=== PATIENT | female | born 1940 | race American Indian/Alaskan Native ===

== ENCOUNTER 2019-03-24 13:21 | Emergency (ER) | payer MEDICARE ==
--- NOTE | 2019-03-24 14:09 | Emergency Department Report ---
ED General Adult HPI - General Chief complaint: Altered Mental Status Stated complaint: AMS Time Seen by Provider: 03/24/19 13:45 Source: patient, family, EMS (ems notes not available at time of chart dictation), RN notes reviewed Mode of arrival: Stretcher Limitations: No Limitations - History of Present Illness Initial comments: Primary care Dr.: Patients daughter does not know how to spell the name of the primary care doctor thinks is Dr Ortega. Past medical history: Hypertension, presumed gout, presumed dementia, on multiple sedating medications, including tramadol, Elavil, and Lyrica. Also has a history of diabetes. This is an 78-year-old female. This patient is not known to this provider previously. Patient is brought to the hospital by her daughter for generalized weakness. The patient endorses chronic right-sided paracervical neck pain, and chronic left lumbar/paralumbar back pain. The patient is brought to the hospital by her daughter for frequent falls, and intermittent confusion. The patient started thinks that the confusion started within the past 36-48 hours. She indicates the patient is occasionally speaking in a nonsensical fashion. Patient typically walks with a walker, and has had a few witnessed mechanical falls. The patient currently denies headache, midline neck pain, chest pain, abdominal pain, new or different shortness of breath. The patient doesn't remember falling. The patient's daughter indicates that the patient's mental status appears to be at baseline at this moment. There are no new medications that the patient has recently started. -: days(s) (2) Radiation: other Quality: other Consistency: other Improves with: none Worsens with: none - Related Data Home Medications Medication Instructions Recorded Confirmed Last Taken Amlodipine Besylate [Norvasc] 5 mg PO QDAY 03/24/19 03/24/19 Unknown Insulin Glargine,Hum.rec.anlog 5 units SUB-Q DAILY 03/24/19 03/24/19 Unknown [Lantus Solostar] Labetalol [Labetalol 100mg TAB] 100 mg PO BID 03/24/19 03/24/19 Unknown Lovastatin [Altoprev] 20 mg PO DAILY 03/24/19 03/24/19 Unknown Potassium Chloride [Klor-Con 8] 8 meq PO QDAY 03/24/19 03/24/19 Unknown Allergies Allergy/AdvReac Type Severity Reaction Status Date / Time No Known Allergies Allergy Unverified 03/24/19 14:01 ED Review of Systems ROS: Stated complaint: AMS Other details as noted in HPI Constitutional: denies: fever Eyes: denies: eye discharge ENT: denies: epistaxis Respiratory: denies: cough Cardiovascular: denies: chest pain Gastrointestinal: denies: abdominal pain Genitourinary: denies: dysuria Musculoskeletal: back pain Skin: denies: lesions Neurological: weakness, confusion Hematological/Lymphatic: denies: easy bleeding ED Past Medical Hx - Past Medical History Previous Medical History?: Yes Hx Hypertension: Yes Hx Dementia: Yes Additional medical history: leukemia - Surgical History Past Surgical History?: No - Social History Smoking Status: Never Smoker - Medications Home Medications: Home Medications Medication Instructions Recorded Confirmed Last Taken Type Amlodipine Besylate [Norvasc] 5 mg PO QDAY 03/24/19 03/24/19 Unknown History Insulin Glargine,Hum.rec.anlog 5 units SUB-Q DAILY 03/24/19 03/24/19 Unknown History [Lantus Solostar] Labetalol [Labetalol 100mg TAB] 100 mg PO BID 03/24/19 03/24/19 Unknown History Lovastatin [Altoprev] 20 mg PO DAILY 03/24/19 03/24/19 Unknown History Potassium Chloride [Klor-Con 8] 8 meq PO QDAY 03/24/19 03/24/19 Unknown History ED Physical Exam - General Limitations: No Limitations General appearance: alert, in no apparent distress, obese - Head Head exam: Present: atraumatic, normocephalic - Eye Eye exam: Present: normal appearance, EOMI, other (visual acuity intact to finger counting, color perception, reading at a close distance). Absent: nystagmus - ENT ENT exam: Present: normal exam, normal orophraynx, mucous membranes moist, normal external ear exam - Neck Neck exam: Present: normal inspection, full ROM. Absent: tenderness, meningismus - Respiratory Respiratory exam: Present: normal lung sounds bilaterally. Absent: respiratory distress - Cardiovascular Cardiovascular Exam: Present: regular rate, normal rhythm, normal heart sounds. Absent: bradycardia, tachycardia, irregular rhythm, systolic murmur, diastolic murmur, rubs, gallop - GI/Abdominal GI/Abdominal exam: Present: soft. Absent: distended, tenderness, guarding, rebound, rigid, pulsatile mass - Rectal Rectal exam: Present: normal inspection, other (chaperoned by nurse Alice Young) - Extremities Exam Extremities exam: Present: normal inspection, full ROM, pedal edema, other (2+ pulses noted in the bilateral upper, lower extremities. Compartments soft. No long bony tenderness. The pelvis is stable.). Absent: calf tenderness - Back Exam Back exam: Present: normal inspection, full ROM. Absent: tenderness, CVA tenderness (R), CVA tenderness (L), paraspinal tenderness, vertebral tenderness - Neurological Exam Neurological exam: Present: alert, oriented X3, other (Extraocular movements intact. Tongue midline. No facial droop. Facial sensation intact to light touch in the V1, V2, V3 distribution bilaterally. 5 and 5 strength in 4 extremities.. Sensation is intact to light touch in 4 extremities.). Absent: motor sensory deficit - Psychiatric Psychiatric exam: Present: normal affect, normal mood - Skin Skin exam: Present: warm, dry, intact, normal color. Absent: rash ED Course Vital Signs 03/24/19 03/24/19 13:57 15:23 Temperature 98.7 F Pulse Rate 88 87 Respiratory 18 18 Rate Blood Pressure 132/69 Blood Pressure 104/62 101/56 [Right] O2 Sat by Pulse 99 99 Oximetry - Reevaluation(s) Reevaluation #1: 03/24/19 14:40 Differential diagnosis, including not limited to: Chronic musculoskeletal pain, deconditioning, pneumonia, urinary tract infection, arthritis, intracranial injury, cervical spine injury Assessment and plan: 78-year-old female with chronic musculoskeletal complaints, with normal mental status at this time, clinically sober at this time, GCS of 15, likely experiencing progression of chronic dementia. Her physical examin ation is unremarkable. We will obtain CT scan of the brain, cervical spine, abdomen/pelvis. Screening laboratory studies, urinalysis have been requested. We will observe the patient. We will treat her pain. We will hold sedating medications at this time. We will reassess after her data points have resulted. Reevaluation #2: 03/24/19 17:59 Objective imaging studies negative for acute disease. Multiple incidental findings noted. Patient found to have renal insufficiency. This appears to be chronic. Contacted her primary care doctor, Dr Bhakta., at [phone]. She informs me that a few months ago, the patient had a blood urea nitrogen of 25, and a creatinine of 1.7. She had a hemoglobin of 9, and a hematocrit of 28. CBC appears to be unchanged from prior, patient having progression of renal insufficiency. Patient resting comfortably in the ER, has not had any episodes of loss of consciousness, and vital signs have remained stable and unremarkable. Patient likely experiencing natural progression of presumed dementia, and renal insufficiency. We will recommend that patient withhold sedating medications, nephrotoxins, and follow up with outpatient primary care, and outpatient nephrology. Patient furthermore was seen and evaluated by case management, and set up for home health. CT scan of the brain shows incidental probable meningioma. Based off of the history and physical, we do not suspect aneurysm. CT scan of the abdomen and pelvis with multiple incidental findings. 03/24/19 18:03 Reevaluation #3: 03/24/19 18:20 Patient able to urinate, but with difficulty. However, she is not completely obstructed. She can follow up with an outpatient primary care doctor for her difficulty with urination. ED Medical Decision Making - Lab Data Result diagrams: 03/24/19 14:11 03/24/19 14:11 Vital Signs 03/24/19 13:57 Temperature 98.7 F Pulse Rate 88 Respiratory 18 Rate Blood Pressure 132/69 Blood Pressure 104/62 [Right] O2 Sat by Pulse 99 Oximetry Lab Results 03/24/19 Range/Units 14:11 WBC 5.0 (4.5-11.0) K/mm3 RBC 3.30 L (3.65-5.03) M/mm3 Hgb 9.6 L (10.1-14.3) gm/dl Hct 28.7 L (30.3-42.9) % MCV 87 (79-97) fl MCH 29 (28-32) pg MCHC 33 (30-34) % RDW 16.9 H (13.2-15.2) % Plt Count 218 (140-440) K/mm3 - EKG Data -: EKG Interpreted by Me EKG shows normal: sinus rhythm Rate: normal - EKG Data When compared to previous EKG there are: previous EKG unavailable 03/24/19 14:41 This is a normal sinus rhythm, left axis deviation, left anterior fascicular block, left ventricular hypertrophy, prolonged ID interval, nonspecific interventricular conduction delay, right bundle branch block, this is an abnormal EKG, there is no prior for comparison, the EKG is not consistent with ST elevation myocardial infarction. There is no prior for comparison. - Radiology Data Radiology results: image reviewed interpreted by me: Portable one view x-ray of the chest shows enlarged cardiac silhouette, poor inspiratory effort, unremarkable x-ray of the chest, no obvious infiltrate. Portable technique, minimally rotated. Print Report Referring Physician: ABBI CORDERO Patient Name: IFRAH COLLINS Date of : 1940 Sex: Female Report Date: 2019-03-24 Report Status: Finalized Findings [facility] [address] [place] [address] Cat Scan Report Signed Patient: IFRAH COLLINS MR#: [id number] : 1940 Acct:[id number] Age/Sex: 78 / F ADM Date: 03/24/19 Loc: ED Attending Dr: Ordering Physician: ABBI CORDERO MD Date of Service: 03/24/19 Procedure(s): CT cervical spine wo con Accession Number(s): [id number] cc: ABBI CORDERO MD CT CERVICAL SPINE WITHOUT CONTRAST INDICATION: Fall, neck injury since last . TECHNIQUE: Axial imaging performed through the cervical without the use of contrast. Sagittal and coronal reconstructed images were also reviewed. All CT scans at this location are performed using CT dose reduction for ALARA by means of automated exposure control. COMPARISON: None FINDINGS: Alignment: There is mild reversal of the normal cervical lordosis. No evidence for subluxation. Bones: There is no acute osseous abnormality. Moderate discogenic DJD is identified at C4-5 and C5-6. Mild discogenic disease is identified at C6-7. There is moderate facet arthropathy at C3-4 on the right side and C4-5 on the left side. There is moderate post terrier spurring at C5-6 resulting in mild central canal narrowing measuring 8 mm. No evidence for acute fracture or bony lesion. Soft tissues: No acute or significant incidental soft tissue abnormality. IMPRESSION: Reversal of the normal cervical lordosis. Moderate degenerative changes as outlined above. Mild spinal canal narrowing at C5-6. No evidence for acute injury. CT ABDOMEN AND PELVIS WITHOUT CONTRAST INDICATION / CLINICAL INFORMATION: Intermittent falls, dizziness, difficulty urinating, abdominal pain. TECHNIQUE: Axial CT images were obtained through the abdomen and pelvis after without IV contrast. Sagittal and coronal reformatted images. All CT scans at this location are performed using CT dose reduction for ALARA by means of automated exposure control. COMPARISON: None available. FINDINGS: LOWER CHEST: No significant abnormality. LIVER: No significant abnormality. GALLBLADDER: No significant abnormality. BILE DUCTS: No significant abnormality. PANCREAS: No significant abnormality. SPLEEN: No significant abnormality. ADRENALS: The right adrenal gland is normal. A 2.4 cm intermediate density left adrenal nodule is identified. Internal density measures 39 Hounsfield units. RIGHT KIDNEY and URETER: No significant abnormality. LEFT KIDNEY and URETER: No significant abnormality. STOMACH and SMALL BOWEL: No significant abnormality. COLON: No significant abnormality. APPENDIX: No significant abnormality. PERITONEUM: No free fluid. No free air. No fluid collection. LYMPH NODES: No significant adenopathy. AORTA and ARTERIES: Mild diffuse calcifications. No aneurysm IVC and VEINS: No significant abnormality. URINARY BLADDER: No significant abnormality. REPRODUCTIVE ORGANS: Mild uterine fibroid disease is suspected. The adnexa are unremarkable. ADDITIONAL FINDINGS: None. SKELETAL SYSTEM: Moderate to severe m ultilevel degenerative disc disease and facet arthropathy are noted throughout the lumbar spine. No evidence for acute fracture or bony lesion. Right laminectomy changes at L5 are noted. IMPRESSION: No acute abdominal process is identified. 2.4 cm indeterminate left adrenal nodule. This probably represents an adrenal adenoma. This could be further evaluated with MRI with and without contrast adrenal protocol if needed. Mild uterine fibroid disease. Advanced degenerative changes in the lumbar spine. Signer Name: Jordan Donahue Jr, MD Signed: 03/24/2019 3:39 PM Workstation Name: [id number] Transcribed By: TTR Dictated By: JORDAN DONAHUE JR, MD Electronically Authenticated By: JORDAN DONAHUE JR, MD Signed Date/Time: 03/24/19 5023 Report Status: Finalized [facility] [address] [place] [address] Cat Scan Report Signed Patient: IFRAH COLLINS MR#: [id number] : 1940 Acct:[id number] Age/Sex: 78 / F ADM Date: 03/24/19 Loc: ED Attending Dr: Ordering Physician: ABBI CORDERO MD Date of Service: 03/24/19 Procedure(s): CT head/brain wo con Accession Number(s): [id number] cc: ABBI CORDERO MD CT HEAD WITHOUT CONTRAST INDICATION / CLINICAL INFORMATION: Patient presents with history of frequent falling, weakness and intermittent confusion. TECHNIQUE: All CT scans at this location are performed using CT dose reduction for ALARA by means of automated exposure control. COMPARISON: None available. FINDINGS: MAJOR FINDING: An extra-axial mass is present. This is located along the posterior margin of the planum sphenoidale to the right of the midline. This extends down into the sella turcica. Overall size of this lesion is about 1.5 x 1.0 cm in transverse dimension by 1.2 cm in superior-inferior dimension. This is of increased attenuation compared to brain parenchyma and shows evidence of calcification. This likely represents a meningioma. Based on extension of the lesion into the sella turcica the diagnosis of aneurysm is unlikely, however, further evaluation to include MRI brain without and with contrast and MRA head are suggested for further evaluation if clinically warranted. HEMORRHAGE: No evidence of intracranial hemorrhage or extra-axial fluid collection. EXTRA-AXIAL SPACES: Cortical sulci and sylvian fissures are enlarged reflecting a degree of parenchymal volume loss which is within normal limits for the patient's age. Basilar cisterns have an unremarkable appearance. VENTRICULAR SYSTEM: The third and lateral ventricles are enlarged reflecting resonance of age related parenchymal volume loss. CEREBRAL PARENCHYMA: Periventricular and deep white matter lucency is observed. This is probably secondary to microvascular ischemic change. There is no indication of recent infarction. No areas of encephalomalacia are identified. MIDLINE SHIFT OR HERNIATION: There is no mass effect. CEREBELLUM / BRAINSTEM: Brainstem and cerebellum have an unremarkable appearance. INTRACRANIAL VESSELS:Calcified atherosclerotic plaque is present along the course of the cavernous segments of both internal carotid arteries. ORBITS: Patient is status post bilateral cataract surgery. The orbits have an otherwise unremarkable appearance. SOFT TISSUES of HEAD: No significant abnormality. CALVARIUM: Evaluation of bone windows reveals no abnormalities. PARANASAL SINUSES / MASTOID AIR CELLS: Inflammatory mucosal thickening is present at the base of the left maxillary sinus. Paranasal sinuses are otherwise free from inflammatory mucosal disease. Mastoid air cells are normally pneumatized. IMPRESSION: 1. 1.5 x 1.0 x 1.2 cm extra-axial mass along the posterior margin of the planum sphenoidale to the right of the midline. This most likely represents a meningioma. As discussed above, aneurysm is considered unlikely but not entirely excluded. Further evaluation with MRI brain without and with contrast and MRA head are suggested if clinically warranted. 2. Age-related parenchymal volume loss and microvascular ischemic change. 3. No acute intracranial abnor mality. Signer Name: Valerio Ernandez MD Signed: 03/24/2019 3:45 PM Workstation Name: [id number] Transcribed By: Dictated By: Valerio Ernandez MD Electronically Authenticated By: Valerio Ernandez MD Signed Date/Time: 03/24/19 3679 Critical care attestation.: If time is entered above; I have spent that time in minutes in the direct care of this critically ill patient, excluding procedure time. ED Disposition Clinical Impression: Chronic renal insufficiency, Frequent falls Disposition: - TO HOME OR SELFCARE Is pt being admited?: No Does the pt Need Aspirin: No Condition: Stable Additional Instructions: Discontinue sedating medications, including Lyrica, tramadol, and amitriptyline. Discontinue medications which may affect kidney function, including Lasix, and hydrochlorothiazide, allopurinol, cozaar Do not resume these medications unless specifically instructed to buy a primary care doctor or nephrology specialist. . Please follow-up with your primary care doctor or a hearing screener within the next 5-7 days for repeat evaluation for worsening renal insufficiency, and reevaluation of outpatient antihypertensive medications. Avoid consumption of Motrin, ibuprofen, Naprosyn, Aleve. Patient will be seen by home health aide within the next 48 hours. Patient was not found to have an emergent medical condition today, however, CT scan of the brain suggested a possible meningioma or mass within the skull, and this should be followed up by primary care doctor within the next month. Please have a primary care doctor contact the medical records department to obtain CT scan interpretation for follow-up on nonemergent incidental findings. CT scan of the abdomen and pelvis showed no emergent disease, however, nonemergent incidental findings were noted, and should also be followed up by a primary care doctor. Return to the emergency room right away with new, worsening or different symptoms, or symptoms not present on the initial emergency room evaluation. Local nephrology doctors, including the following nephrology specialist, Connor Paniagua Referrals: VIOLETTA AVALOS [Other] - 3-5 Days VINCE KILLIAN MD [Staff Physician] - 3-5 Days MARIO MCDOWELL MD [Staff Physician] - 3-5 Days
[2019-03-24 14:30] LABS: Hematocrit 28.7 % (30.3-42.9); Hemoglobin 9.6 gm/dl (10.1-14.3); Mean Corpuscular HGB Conc 33 % (30-34); Mean Corpuscular Volume 87 fl (79-97); Platelet Count 218 K/mm3 (140-440); Red Cell Distribution Width 16.9 % (13.2-15.2)
--- NOTE | 2019-03-24 14:46 | XRay Report ---
CHEST 1 VIEW INDICATION: cough weak. COMPARISON: None. FINDINGS: Support devices: None. Heart: Within normal limits considering low lung volumes. Lungs/pleura: No acute air space or interstitial disease. No pneumothorax. Additional findings: None. IMPRESSION: 1. No acute findings. Signer Name: Kenji Francis MD Signed: 03/24/2019 2:42 PM Workstation Name: [id number]
[2019-03-24 14:51] LABS: Albumin 3.6 g/dL (3.9-5); Calcium 9.4 mg/dL (8.4-10.2)
[2019-03-24 14:56] LABS: INR 0.95 (0.87-1.13)
[2019-03-24 15:34] LABS: Bilirubin,Urine NEG (Negative); Blood,Urine NEG (Negative); Color,Urine Yellow (Yellow); Hyaline Casts,Urine 3 /LPF; Mucus,Urine FEW /HPF; Protein,Urine <15 mg/dL mg/dL (Negative); Urobilinogen,Urine < 2.0 mg/dL (<2.0)
[2019-03-24] MEDS ORDERED: NACL 0.9% 500 ML 500 ML IV ONE (15:35)
--- NOTE | 2019-03-24 15:43 | Cat Scan Report ---
CT CERVICAL SPINE WITHOUT CONTRAST INDICATION: Fall, neck injury since last . TECHNIQUE: Axial imaging performed through the cervical without the use of contrast. Sagittal and c oronal reconstructed images were also reviewed. All CT scans at this location are performed using CT dose reduction for ALARA by means of automated exposure control. COMPARISON: None FINDINGS: Alignment: There is mild reversal of the normal cervical lordosis. No evidence for subluxation. Bones: There is no acute osseous abnormality. Moderate discogenic DJD is identified at C4-5 and C5- 6. Mild discogenic disease is identified at C6-7. There is moderate facet arthropathy at C3-4 on the right side and C4-5 on the left side. There is moderate post terrier spurring at C5-6 resulting in mi ld central canal narrowing measuring 8 mm. No evidence for acute fracture or bony lesion. Soft tissues: No acute or significant incidental soft tissue abnormality. IMPRESSION: Reversal of the normal cervical lordosis. Moderate degenerative changes as outlined abov e. Mild spinal canal narrowing at C5-6. No evidence for acute injury. CT ABDOMEN AND PELVIS WITHOUT CONTRAST INDICATION / CLINICAL INFORMATION: Intermittent falls, dizziness, difficulty urinating, abdominal savage n. TECHNIQUE: Axial CT images were obtained through the abdomen and pelvis after without IV contrast. Sagittal and coronal reformatted images. All CT scans at this location are performed using CT dose reduction for A LUIZ by means of automated exposure control. COMPARISON: None available. FINDINGS: LOWER CHEST: No significant abnormality. LIVER: No significant abnormality. GALLBLADDER: No significant abnormality. BILE DUCTS: No significant abnormality. PANCREAS: No significant abnormality. SPLEEN: No significant abnormality. ADRENALS: The right adrenal gland is normal. A 2.4 cm intermediate density left adrenal nodule is lance ntified. Internal density measures 39 Hounsfield units. RIGHT KIDNEY and URETER: No significant abnormality. LEFT KIDNEY and URETER: No significant abnormality. STOMACH and SMALL BOWEL: No significant abnormality. COLON: No significant abnormality. APPENDIX: No significant abnormality. PERITONEUM: No free fluid. No free air. No fluid collection. LYMPH NODES: No significant adenopathy. AORTA and ARTERIES: Mild diffuse calcifications. No aneurysm IVC and VEINS: No significant abnormality. URINARY BLADDER: No significant abnormality. REPRODUCTIVE ORGANS: Mild uterine fibroid disease is suspected. The adnexa are unremarkable. ADDITIONAL FINDINGS: None. SKELETAL SYSTEM: Moderate to severe multilevel degenerative disc disease and facet arthropathy are no juan throughout the lumbar spine. No evidence for acute fracture or bony lesion. Right laminectomy amilcar nges at L5 are noted. IMPRESSION: No acute abdominal process is identified. 2.4 cm indeterminate left adrenal nodule. This probably represents an adrenal adenoma. This could be further evaluated with MRI with and without contrast adrenal protocol if needed. Mild uterine fibroid disease. Advanced degenerative changes in the lumbar spine. Signer Name: Jordan Donahue Jr, MD Signed: 03/24/2019 3:39 PM Workstation Name: [id number]
--- NOTE | 2019-03-24 15:49 | Cat Scan Report ---
CT HEAD WITHOUT CONTRAST INDICATION / CLINICAL INFORMATION: Patient presents with history of frequent falling, weakness and intermittent confusion. TECHNIQUE: All CT scans at this location are performed using CT dose reduction for ALARA by means of automated e xposure control. COMPARISON: None available. FINDINGS: MAJOR FINDING: An extra-axial mass is present. This is located along the posterior margin of the plan um sphenoidale to the right of the midline. This extends down into the sella turcica. Overall size of this lesion is about 1.5 x 1.0 cm in transverse dimension by 1.2 cm in superior-inferior dimension. This is of increased attenuation compared to brain parenchyma and shows evidence of calcification. Th is likely represents a meningioma. Based on extension of the lesion into the sella turcica the diagno sis of aneurysm is unlikely, however, further evaluation to include MRI brain without and with contra st and MRA head are suggested for further evaluation if clinically warranted. HEMORRHAGE: No evidence of intracranial hemorrhage or extra-axial fluid collection. EXTRA-AXIAL SPACES: Cortical sulci and sylvian fissures are enlarged reflecting a degree of parenchym al volume loss which is within normal limits for the patient's age. Basilar cisterns have an unremark able appearance. VENTRICULAR SYSTEM: The third and lateral ventricles are enlarged reflecting resonance of age related parenchymal volume loss. CEREBRAL PARENCHYMA: Periventricular and deep white matter lucency is observed. This is probably seco ndary to microvascular ischemic change. There is no indication of recent infarction. No areas of ence phalomalacia are identified. MIDLINE SHIFT OR HERNIATION: There is no mass effect. CEREBELLUM / BRAINSTEM: Brainstem and cerebellum have an unremarkable appearance. INTRACRANIAL VESSELS:Calcified atherosclerotic plaque is present along the course of the cavernous se gments of both internal carotid arteries. ORBITS: Patient is status post bilateral cataract surgery. The orbits have an otherwise unremarkable appearance. SOFT TISSUES of HEAD: No significant abnormality. CALVARIUM: Evaluation of bone windows reveals no abnormalities. PARANASAL SINUSES / MASTOID AIR CELLS: Inflammatory mucosal thickening is present at the base of the left maxillary sinus. Paranasal sinuses are otherwise free from inflammatory mucosal disease. Mastoid air cells are normally pneumatized. IMPRESSION: 1. 1.5 x 1.0 x 1.2 cm extra-axial mass along the posterior margin of the planum sphenoidale to the ri ght of the midline. This most likely represents a meningioma. As discussed above, aneurysm is conside red unlikely but not entirely excluded. Further evaluation with MRI brain without and with contrast a nd MRA head are suggested if clinically warranted. 2. Age-related parenchymal volume loss and microvascular ischemic change. 3. No acute intracranial abnormality. Signer Name: Valerio Ernandez MD Signed: 03/24/2019 3:45 PM Workstation Name: [id number]
[2019-03-24 19:44] VITALS: BP 133/60
== END 2019-03-24 19:45 | disposition home or self-care (01) ==
LOC: ED 13:21
DX: I12.9 Hypertensive chronic kidney disease with stage 1 through stage 4 chronic kidney disease, or unspecified chronic kidney disease (principal); N18.9 Chronic kidney disease, unspecified; R41.0 Disorientation, unspecified; R10.9 Unspecified abdominal pain; M79.10 Myalgia, unspecified site; G89.29 Other chronic pain; Z79.899 Other long term (current) drug therapy
CPT/HCPCS: 36415; 70450; 71045; 72125; 74176; 80053; 81001; 82140; 82550; 83735; 84443; 85027; 85610; 93005; 93010; 99285; G0480; J7040; 80320